=== PATIENT | female | born 1990 | race Two or more races ===

== ENCOUNTER 2023-04-27 19:14 | Emergency (ER) | payer BC, OTHER ==
[~2023-04-27] VITALS: Ht 167.6 cm; Wt 76.5 kg
[2023-04-27 19:17] VITALS: TEMP 98.1
[2023-04-27] MEDS: ONDANSETRON ODT 4 MG TAB PO ONE (20:07)
[2023-04-27] MEDS: MORPHINE SULFATE 4 MG/ML SYR/VIAL IM ONE (20:09)
[2023-04-27 20:15] VITALS: O2SAT 100
[2023-04-27 20:39] VITALS: BP 118/62; PULSE 78; RESP 16
[2023-04-27] MEDS: KETOROLAC TROMETH 30 MG/ML 1ML VIAL IM ONE (21:16)
[2023-04-27] MEDS: LIDOCAINE 5% TOPICAL PATCH TOP ONE (21:18)
[2023-04-27] MEDS ORDERED: METH-1182 PO (22:20)
[2023-04-27] MEDS: CYCLOBENZAPRINE HCL 10 MG TAB PO ONE (22:55)
== END 2023-04-27 23:35 | disposition home or self-care (01) ==
LOC: ER 19:14
DX: M54.42 Lumbago with sciatica, left side (principal); Z88.2 Allergy status to sulfonamides
CPT/HCPCS: 96372; 99284; J1885; J2270; Q0162